=== PATIENT | female | born 1960 | race Caucasian/White ===

== ENCOUNTER 2017-11-23 14:29 | Outpatient (CLI) | payer MEDICARE, MEDICAID ==
[~2017-11-23] VITALS: Ht 157.5 cm; Wt 54.4 kg
[~2017-11-23 14:29] MED LIST: ATEN-169 PO; HYDR-565 PO; LOPE-144; LORA10TA7 PO; OMEP40CA37 PO
[2017-11-23 15:30] LABS: BASOPHILS % (AUTO) 0.3 % (0-1); EOSINOPHILS # (AUTO) 0.4 X10'3 (0-0.9); EOSINOPHILS % (AUTO) 3.4 % (0-6); LYMPHOCYTES # (AUTO) 0.8 X10'3 (1.1-4.8); LYMPHOCYTES % (AUTO) 7.3 % (21-51); MEAN CORPUSCULAR HEMOGLOBIN 30.6 PG (27.0-31.0); MEAN CORPUSCULAR VOLUME 90.2 FL (78-98); MEAN PLATELET VOLUME 6.6 FL (7.4-10.4); MONOCYTES # (AUTO) 0.7 X10'3 (0-0.9); MONOCYTES % (AUTO) 6.6 % (2-12); NEUTROPHILS # (AUTO) 9.3 X10'3 (1.8-7.7); NEUTROPHILS % (AUTO) 82.4 % (42-75); PRE OP PLATELET COUNT 321 X10'3 (140-440); RED BLOOD COUNT 3.14 X10'6 (4.20-5.60); RED CELL DISTRIBUTION WIDTH 17.4 % (11.5-14.5)
[2017-11-23] MEDS ORDERED: DIPH1TAB PO (15:33)
[2017-11-23 15:34] LABS: PRE OP HEMATOCRIT 28.3 % (35.0-45.0); PRE OP HEMOGLOBIN 9.6 g/dL (12.0-16.0)
[2017-11-23] MEDS ORDERED: METO50TA7 PO (15:34)
[2017-11-23] MEDS ORDERED: BISM262O PO (15:35)
[2017-11-23 15:36] LABS: CLARITY,URINE CLOUDY (Clear); COLOR,URINE YELLOW (Yellow); GLUCOSE, URINE NEGATIVE (Neg); KETONES,URINE NEGATIVE (Neg); LEUKOCYTE ESTERASE ,URINE LARGE (Neg); NITRITES, URINE POSITIVE (Neg); OCCULT BLOOD,URINE LARGE (Neg); PROTEIN,URINE 100 mg/dl (Neg); UA COLLECTION TYPE CLN CATCH MIDSTREAM; UROBILINOGEN,URINE 0.2 E.U/dL (0.2-1.0)
[2017-11-23 15:41] LABS: PRE OP INR 1.1 INR; PRE OP PROTIME 11.2 SECONDS (9.0-12.0)
[2017-11-23 15:44] LABS: MUCUS STRANDS MANY /LPF (Neg); SQUAMOUS EPITHELIAL CELL,UR FEW /LPF (FEW); WBC,URINE TNTC /HPF (0-4)
[2017-11-23 15:46] LABS: YEAST MODERATE /HPF (NEGATIVE)
[2017-11-23 15:47] LABS: AMORPHOUS URATES 1+; BACTERIA,URINE 3+ /HPF (Neg)
[2017-11-23 15:50] LABS: ALBUMIN 2.5 G/DL (3.4-5.0); ALBUMIN/GLOBULIN RATIO 0.5 (1.1-1.5); ALKALINE PHOSPHATASE 82 IU/L (46-116); BLOOD UREA NITROGEN 22 MG/DL (7-18); BUN/CREATININE RATIO 8.7 (6.6-38.0); CALCIUM 6.2 MG/DL (8.5-10.1); CHLORIDE 103 MMOL/L (99-107); CREATININE 2.53 MG/DL (0.40-0.90); PRE OP ALT 12 U/L (30-65); PRE OP ANION GAP 15 (8-16); PRE OP AST 16 U/L (10-37); PRE OP BILIRUB, TOTAL 0.5 MG/DL (0.0-1.0); PRE OP GLUCOSE 115 MG/DL (70-104); PRE OP POTASSIUM 3.4 MMOL/L (3.4-5.1); PRE OP SODIUM 139 MMOL/L (135-145); TOTAL CARBON DIOXIDE 20.9 MMOL/L (24-32); TOTAL PROTEIN 7.3 G/DL (6.4-8.2); eGFR 19 ML/MIN
[2017-11-24] MEDS ORDERED: ceFOXitin 2 GM ADDvantage bag 100 ML IV ONE (05:30)
[2017-11-24] MEDS ORDERED: DOCUMENT DATE & TIME OF BETA-BLOCKER PO ONE (05:30)
[2017-11-24] MEDS ORDERED: famotidine 20mg tablet PO ONE (05:30)
== END 2017-11-23 23:59 | disposition home or self-care (01) ==
LOC: PRE-OP 14:29 → EDSTATUS 11-24 15:30
PROVIDERS: ATTEND Surgery
DX: Z01.818 Encounter for other preprocedural examination (principal); K80.20 Calculus of gallbladder without cholecystitis without obstruction
CPT/HCPCS: 36415; 71046; 80053; 81001; 85025; 85610; 85730; 87077; 87088; 87186; 93005

== ENCOUNTER 2017-12-06 10:28 | Outpatient (CLI) | payer MEDICARE, MEDICAID ==
[~2017-12-06 10:28] MED LIST changes: -ATEN-169 PO; +BISM262O PO; +DIPH1TAB PO; -LOPE-144; +METO50TA7 PO
[2017-12-06 11:21] LABS: BASOPHILS % (AUTO) 0.2 % (0-1); EOSINOPHILS # (AUTO) 0.4 X10'3 (0-0.9); EOSINOPHILS % (AUTO) 2.4 % (0-6); LYMPHOCYTES # (AUTO) 0.7 X10'3 (1.1-4.8); LYMPHOCYTES % (AUTO) 4.2 % (21-51); MEAN CORPUSCULAR HEMOGLOBIN 30.3 PG (27.0-31.0); MEAN CORPUSCULAR HGB CONC 34.1 % (33.0-36.5); MEAN CORPUSCULAR VOLUME 88.8 FL (78-98); MEAN PLATELET VOLUME 6.9 FL (7.4-10.4); MONOCYTES # (AUTO) 0.7 X10'3 (0-0.9); MONOCYTES % (AUTO) 4.6 % (2-12); NEUTROPHILS % (AUTO) 88.6 % (42-75); PRE OP HEMATOCRIT 30.8 % (35.0-45.0); PRE OP PLATELET COUNT 320 X10'3 (140-440); RED BLOOD COUNT 3.47 X10'6 (4.20-5.60); RED CELL DISTRIBUTION WIDTH 16.8 % (11.5-14.5)
[2017-12-06 11:24] LABS: PRE OP HEMOGLOBIN 10.5 g/dL (12.0-16.0)
[2017-12-06 11:29] LABS: CLARITY,URINE CLOUDY (Clear); COLOR,URINE YELLOW (Yellow); GLUCOSE, URINE NEGATIVE (Neg); KETONES,URINE NEGATIVE (Neg); LEUKOCYTE ESTERASE ,URINE LARGE (Neg); NITRITES, URINE NEGATIVE (Neg); OCCULT BLOOD,URINE LARGE (Neg); PROTEIN,URINE 100 mg/dl (Neg); UROBILINOGEN,URINE 0.2 E.U/dL (0.2-1.0)
[2017-12-06 11:36] LABS: ALBUMIN 2.6 G/DL (3.4-5.0); ALBUMIN/GLOBULIN RATIO 0.5 (1.1-1.5); ALKALINE PHOSPHATASE 98 IU/L (46-116); BLOOD UREA NITROGEN 48 MG/DL (7-18); BUN/CREATININE RATIO 14.7 (6.6-38.0); CHLORIDE 102 MMOL/L (99-107); CREATININE 3.26 MG/DL (0.40-0.90); PRE OP ALT 12 U/L (30-65); PRE OP ANION GAP 19 (8-16); PRE OP AST 18 U/L (10-37); PRE OP BILIRUB, TOTAL 0.3 MG/DL (0.0-1.0); PRE OP GLUCOSE 87 MG/DL (70-104); PRE OP POTASSIUM 4.2 MMOL/L (3.4-5.1); PRE OP SODIUM 138 MMOL/L (135-145); TOTAL CARBON DIOXIDE 17.2 MMOL/L (24-32); TOTAL PROTEIN 8.2 G/DL (6.4-8.2); eGFR 15 ML/MIN
[2017-12-06 11:38] LABS: CALCIUM 5.4 MG/DL (8.5-10.1)
[2017-12-06 11:38] LABS: UA COLLECTION TYPE CLN CATCH MIDSTREAM
[2017-12-06 11:41] LABS: WBC,URINE TNTC /HPF (0-4)
[2017-12-06 11:42] LABS: BACTERIA,URINE 2+ /HPF (Neg); MUCUS STRANDS MANY /LPF (Neg); SQUAMOUS EPITHELIAL CELL,UR MODERATE /LPF (FEW)
[2017-12-06 11:43] LABS: WBC CLUMPS,URINE MODERATE /HPF (NEGATIVE)
[2017-12-06 11:44] LABS: RENAL CELLS, URINE FEW /HPF; TRANSITIONAL EPI CELLS,URINE FEW /HPF; YEAST MODERATE /HPF (NEGATIVE)
[2017-12-06 11:47] LABS: AMORPHOUS URATES 1+
== END 2017-12-06 23:59 | disposition home or self-care (01) ==
LOC: PRE-OP 10:28 → EDSTATUS 12-09 07:30
PROVIDERS: ATTEND Surgery
DX: K80.80 Other cholelithiasis without obstruction (principal); D58.2 Other hemoglobinopathies; I10 Essential (primary) hypertension; R82.99 Other abnormal findings in urine; Z87.891 Personal history of nicotine dependence
CPT/HCPCS: 36415; 80053; 81001; 85025; 87088

== ENCOUNTER → 2018-04-22 | Outpatient (CLI) | payer MEDICARE, MEDICAID ==
[~2018-04-22] MED LIST changes: +HYDR-4353 PO; -HYDR-565 PO; +diatrozoate meglu/diatrozoate sod (37% iodine) 120ML oral solution ONE
== END | disposition home or self-care (01) ==
LOC: RAD 09:35
PROVIDERS: ATTEND Surgery
DX: K57.30 Diverticulosis of large intestine without perforation or abscess without bleeding (principal); I10 Essential (primary) hypertension; Z79.899 Other long term (current) drug therapy; Z87.891 Personal history of nicotine dependence
CPT/HCPCS: 74270; Q9963

== ENCOUNTER 2019-05-22 17:41 | Observation (INO) | payer MEDICARE, MEDICAID ==
[~2019-05-22] VITALS: Ht 157.5 cm; Wt 42.0 kg
[~2019-05-22 17:41] MED LIST changes: +ALBU18HF2 IH; +ASPI81TA52 PO; -BISM262O PO; +CARV6.253 PO; +CIPR250T4 PO; -DIPH1TAB PO; +FLUC200T8 PO; +HYDR-3972 PO; -HYDR-4353 PO; +LACT1CAP26 PO; -LORA10TA7 PO; -METO50TA7 PO; -OMEP40CA37 PO; +VANC5VIA PO; -diatrozoate meglu/diatrozoate sod (37% iodine) 120ML oral solution ONE
[2019-05-22] MEDS ORDERED: fluconazole/NS 400mg/200ml bag 200 ML IV ONE (21:00)
[2019-05-22] MEDS ORDERED: ciprofloxacin lact 400MG/200ML 200 ML IV ONE (21:00)
[2019-05-22] MEDS ORDERED: vancomycin 250MG/10ML UD oral solution 10ML BOTTLE PO ONE (21:00)
[2019-05-22] MEDS ORDERED: normal saline 1000ml 1,000 ML IV ONE (21:05)
[2019-05-22] MEDS ORDERED: magnesium hydroxide 30ml (MOM) UD suspension PO PRN (21:10)
[2019-05-22] MEDS ORDERED: acetaminophen 325mg tablet PO PRN (21:10)
[2019-05-22] MEDS ORDERED: HYDROcodone/acetaminophen 5mg/325mg tablet PO PRN (21:10)
[2019-05-22] MEDS ORDERED: morphine 2 MG/ML inj. syringe IV PRN ×2 (21:10)
[2019-05-22] MEDS ORDERED: ondansetron/PF 4mg/2ml inj IV PRN (21:10)
[2019-05-22] MEDS ORDERED: mag hydrox/Alum hydrox/simeth 30ml oral suspension PO PRN (21:10)
[2019-05-22 21:25] VITALS: BP 130/70
[2019-05-22] MEDS ORDERED: normal saline 1000ml 1,000 ML IV SCH (22:35)
[2019-05-23] VITALS: BP 130/70
--- NOTE | 2019-05-23 01:53 | NUR ---
2124: Received patient report from ED RNSusy. Patient arrived to unit at 2204 via BENNY farrell transported. Resource nurse greeted and transferred patient to bed.I came in shortly after. Patients wound vac disconnected and ours was placed with miimal drainage. Patients IV was infiltrated, multiple RNs attempted to put in another. ICU nurse came up and put in a 22 in the right basilic at 2200. Fluids started and abx hung shortly after. Patient is resting comfortably. Will continue to access. Addendum: 05/23/19 at 0159 by Heath Lentz RN Times IV was started was around 0015 not 2200.This was due to the fact that IV was infiltrated when patient arrived and it took awhile for an RN to be able to place one
[2019-05-23] MEDS: HYDROcodone/acetaminophen 10/325mg tab PO PRN ×2 (03:18→09:11)
[2019-05-23 05:11] LABS: BASOPHILS # (AUTO) 0.1 X10'3 (0-0.2); BASOPHILS % (AUTO) 1.2 % (0-1); EOSINOPHILS # (AUTO) 0.3 X10'3 (0-0.9); EOSINOPHILS % (AUTO) 3.6 % (0-6); HEMATOCRIT 24.6 % (35.0-45.0); HEMOGLOBIN 8.3 g/dl (12.0-16.0); LYMPHOCYTES # (AUTO) 0.7 X10'3 (1.1-4.8); LYMPHOCYTES % (AUTO) 8.4 % (21-51); MEAN CORPUSCULAR HEMOGLOBIN 31.7 PG (27.0-31.0); MEAN CORPUSCULAR HGB CONC 33.9 g/dL (33.0-36.5); MEAN CORPUSCULAR VOLUME 93.5 FL (78-98); MEAN PLATELET VOLUME 6.7 FL (7.4-10.4); MONOCYTES # (AUTO) 0.6 X10'3 (0-0.9); MONOCYTES % (AUTO) 7.5 % (2-12); NEUTROPHILS # (AUTO) 6.6 X10'3 (1.8-7.7); NEUTROPHILS % (AUTO) 79.3 % (42-75); PLATELET COUNT 350 X10'3 (140-440); RED BLOOD COUNT 2.63 X10'6 (4.20-5.60); RED CELL DISTRIBUTION WIDTH 17.3 % (11.5-14.5); WHITE BLOOD COUNT 8.3 X10'3 (4.5-11.0)
[2019-05-23 05:37] LABS: ALBUMIN 1.6 G/DL (3.4-5.0); ANION GAP 12 (8-16); BLOOD UREA NITROGEN 25 MG/DL (7-18); BUN/CREATININE RATIO 12.4 (6.6-38.0); CALCIUM 7.8 MG/DL (8.5-10.1); CHLORIDE 104 MMOL/L (99-107); CREATININE 2.02 MG/DL (0.40-0.90); GLUCOSE 92 MG/DL (70-104); POTASSIUM 4.2 MMOL/L (3.5-5.1); SODIUM 135 MMOL/L (135-145); TOTAL CARBON DIOXIDE 19.3 MMOL/L (24-32); eGFR 25 ML/MIN
--- NOTE | 2019-05-23 06:37 | NUR ---
Problems reprioritized. Patient report given, questions answered & plan of care reviewed with BENNY Sommer.
[2019-05-23 07:00] VITALS: BP 117/64
--- NOTE | 2019-05-23 11:56 | NUR ---
Initial: Pt admit with wound VAC malfunction. Previously admitted and seen by RD multiple times. Pt was provided with written/verbal protein education with verbal anti-diarrhea education and written alternative menu to provide additional food options and optimize PO intake as well as RD contact information 05/09, no further education warranted at this time. Pt currently on a heart healthy diet documented with average 75% PO intake first meal. LBM 05/23. Will continue to follow. Recommendations: 1) Continue heart healthy diet; consider diet liberalization to regular if PO intake declines 2) Monitor need for ONS/additional protein 3) Wt per rx Addendum: 05/23/19 at [address] Amended: Links added.
[2019-05-23 11:58] VITALS: BP 145/68
[2019-05-23] MEDS: mineral oil/petrolatum, white cream 113gm jar TP SCH (12:00)
[2019-05-23] MEDS: nicotine 21mg patch - 24 hr TD SCH (12:00)
--- NOTE | 2019-05-23 14:53 | NUR ---
MD Martin aware med. req. needs to be addressed. Medications reviewed with pt.
[2019-05-23] MEDS ORDERED: ASPI-1265 PO (17:36)
[2019-05-23] MEDS ORDERED: CARV-49 PO (17:37)
[2019-05-23] MEDS ORDERED: FLUC100T PO (17:54)
[2019-05-23] MEDS ORDERED: VANC1VIA21 PO (17:59)
[2019-05-23] MEDS ORDERED: LACT1CAP65 PO (18:01)
[2019-05-23] MEDS ORDERED: CIPR250T4 PO (18:05)
[2019-05-23] MEDS ORDERED: VANC125C11 PO (18:21)
--- NOTE | 2019-05-23 18:21 | NUR ---
Problems reprioritized. Patient report given, questions answered & plan of care reviewed with Deann ZAPATA.
--- NOTE | 2019-05-23 18:58 | NUR ---
Patient in room [facility]. I have received report from Ros ZAPATA and had the opportunity to ask questions and assume patient care.patient was on bedside comode eating dinner call light in reach will continue to monitor
[2019-05-23 19:00] VITALS: BP 148/79
[2019-05-23] MEDS ORDERED: albuterol 2.5 MG/3 ML nebule NEB PRN (20:45)
--- NOTE | 2019-05-23 21:11 | NUR ---
Patient in room [facility]. I have received report from Ros ZAPATA and had the opportunity to ask questions and assume patient care.
[2019-05-24] VITALS: BP 111/61
[2019-05-24] MEDS: carvedilol 6.25mg tablet PO SCH ×2 (02:07→09:41)
[2019-05-24] MEDS: lactobacillus rhamnosus 10,000 MMU CELLS/CAPSULE PO SCH ×2 (02:07→09:44)
[2019-05-24] MEDS: vancomycin 125mg/5ml ORAL solution 5ml UD bottle PO SCH ×3 (02:07→09:40)
[2019-05-24] MEDS: mineral oil/petrolatum, white cream 113gm jar TP SCH ×3 (02:10→13:35)
[2019-05-24] MEDS: HYDROcodone/acetaminophen 10/325mg tab PO PRN ×3 (02:20→13:36)
[2019-05-24 05:46] LABS: BASOPHILS # (AUTO) 0.1 X10'3 (0-0.2); EOSINOPHILS # (AUTO) 0.2 X10'3 (0-0.9); EOSINOPHILS % (AUTO) 3.2 % (0-6); HEMOGLOBIN 7.5 g/dl (12.0-16.0); LYMPHOCYTES # (AUTO) 0.7 X10'3 (1.1-4.8); LYMPHOCYTES % (AUTO) 8.6 % (21-51); MEAN CORPUSCULAR HEMOGLOBIN 31.8 PG (27.0-31.0); MEAN CORPUSCULAR HGB CONC 34.3 g/dL (33.0-36.5); MEAN CORPUSCULAR VOLUME 92.7 FL (78-98); MEAN PLATELET VOLUME 6.7 FL (7.4-10.4); MONOCYTES # (AUTO) 0.5 X10'3 (0-0.9); MONOCYTES % (AUTO) 6.4 % (2-12); NEUTROPHILS # (AUTO) 6.2 X10'3 (1.8-7.7); NEUTROPHILS % (AUTO) 80.8 % (42-75); PLATELET COUNT 346 X10'3 (140-440); RED BLOOD COUNT 2.37 X10'6 (4.20-5.60); RED CELL DISTRIBUTION WIDTH 16.9 % (11.5-14.5); WHITE BLOOD COUNT 7.6 X10'3 (4.5-11.0)
[2019-05-24 05:47] LABS: ALBUMIN 1.6 G/DL (3.4-5.0); ANION GAP 10 (8-16); BLOOD UREA NITROGEN 26 MG/DL (7-18); BUN/CREATININE RATIO 12.4 (6.6-38.0); CALCIUM 7.8 MG/DL (8.5-10.1); CHLORIDE 104 MMOL/L (99-107); CREATININE 2.09 MG/DL (0.40-0.90); GLUCOSE 101 MG/DL (70-104); POTASSIUM 4.2 MMOL/L (3.5-5.1); SODIUM 135 MMOL/L (135-145); TOTAL CARBON DIOXIDE 21.2 MMOL/L (24-32); eGFR 24 ML/MIN
--- NOTE | 2019-05-24 06:29 | NUR ---
Problems reprioritized. Patient report given, questions answered & plan of care reviewed with Ros ZAPATA.
[2019-05-24 06:30] VITALS: BP 100/58
--- NOTE | 2019-05-24 06:33 | NUR ---
Problems reprioritized. Patient report given, questions answered & plan of care reviewed with Ros ZAPATA.
[2019-05-24] MEDS ORDERED: aspirin 81mg tab.chew PO SCH (08:00)
[2019-05-24] MEDS: nicotine 21mg patch - 24 hr TD SCH ×2 (08:00→09:50)
[2019-05-24] MEDS ORDERED: fluconazole 100mg tablet PO SCH (08:00)
[2019-05-24 11:00] VITALS: BP 117/66
[2019-05-24] MEDS ORDERED: ciprofloxacin 250mg tablet PO SCH (11:00)
--- NOTE | 2019-05-24 13:47 | NUR ---
Report called in to Santos DÍAZ charge at [facility]. Pt. being prepared for transfer.
--- NOTE | 2019-05-24 14:22 | NUR ---
PRESSURE ULCER EDUCATION: DEFINITION: A pressure ulcer is an area of skin that breaks down when you stay in one position too long. The constant pressure against the skin reduces the blood flow to that area and the affected tissue dies. CAUSES: "Being bedridden or in a wheelchair "Fragile skin "Having a chronic condition, such as diabetes or vascular disease "Inability to move certain parts of your body without assistance "Older age "Incontinence of urine or stool SYMPTOMS: "A reddened area that DOES NOT turn white when pressed on - this can be the beginning of a pressure ulcer "A blister, deep sore or a crater - these can be advanced pressure ulcers FIRST AID: "Relieve the pressure on this area "Keep the area clean and dry "Call your primary doctor if you see any of the above symptoms "DO NOT massage the area "DO NOT use a donut shaped or ring shaped pillow- these actually interfere with the blood flow and cause complications PREVENTION: "Check for pressure ulcers everyday "Change position at least every two hours to relieve pressure "Use items that help relieve pressure- pillows, sheepskin, foam padding, and powders. "Keep skin clean and dry "Eat healthy well balanced meals "Exercise daily IF YOU SEE ANY OF THESE SYMPTOMS WHILE IN THE HOSPITAL - TELL YOUR NURSE IMMEDIATELY. IF YOU SEE ANY OF THESE SYMPTOMS WHILE AT HOME OR HAVE ANY QUESTIONS OR CONCERNS ABOUT PRESSURE ULCERS - CALL YOUR PRIMARY DOCTOR IMMEDIATELY. Addendum: 05/24/19 at 1423 by Germain Quinteros RN Amended: Links added.
== END 2019-05-24 14:21 ==
LOC: ER 17:41 → ED HOLD 21:35 → SUR 3N 22:05
PROVIDERS: ADMIT Internal Medicine; ATTEND Family Medicine
DX: T85.618A Breakdown (mechanical) of other specified internal prosthetic devices, implants and grafts, initial encounter (principal); I12.9 Hypertensive chronic kidney disease with stage 1 through stage 4 chronic kidney disease, or unspecified chronic kidney disease; N18.3 Chronic kidney disease, stage 3 (moderate); D63.8 Anemia in other chronic diseases classified elsewhere; I73.9 Peripheral vascular disease, unspecified; J44.9 Chronic obstructive pulmonary disease, unspecified; K21.9 Gastro-esophageal reflux disease without esophagitis; Z85.41 Personal history of malignant neoplasm of cervix uteri; Z85.118 Personal history of other malignant neoplasm of bronchus and lung; Z87.891 Personal history of nicotine dependence; Z87.11 Personal history of peptic ulcer disease; Z90.710 Acquired absence of both cervix and uterus; Z79.82 Long term (current) use of aspirin; Z79.899 Other long term (current) drug therapy; Y83.8 Other surgical procedures as the cause of abnormal reaction of the patient, or of later complication, without mention of misadventure at the time of the procedure; Y92.89 Other specified places as the place of occurrence of the external cause
CPT/HCPCS: 36415; 80048; 85025; 87081; 96365; 96367; 97112; 97116; 97530; 99284; G0378; J0744; J1450; J7030

== ENCOUNTER 2019-07-16 17:48 | Inpatient (IN) | payer MEDICARE, MEDICAID ==
[~2019-07-16] VITALS: Ht 165.1 cm; Wt 42.0 kg
[~2019-07-16 17:48] MED LIST changes: +ASPI-1265 PO; -ASPI81TA52 PO; +CARV-49 PO; -CARV6.253 PO; +FLUC100T PO; -FLUC200T8 PO; -LACT1CAP26 PO; +LACT1CAP65 PO; +VANC125C11 PO; -VANC5VIA PO
--- NOTE | 2019-07-16 19:02 | NUR ---
Patient resting comfortably on gurney, waiting for MD.
[2019-07-16] MEDS ORDERED: normal saline 1000ML IV soln IVB ONE (20:20)
[2019-07-16] MEDS ORDERED: ipratropium/albuterol 3ml nebule NEB ONE (20:20)
[2019-07-16] MEDS ORDERED: fentaNYL/PF 50MCG/1 ML 2ML syringe IV ONE (20:25)
[2019-07-16 20:32] LABS: BASOPHILS # (AUTO) 0.1 X10'3 (0-0.2); BASOPHILS % (AUTO) 0.7 % (0-1); EOSINOPHILS # (AUTO) 0.5 X10'3 (0-0.9); EOSINOPHILS % (AUTO) 5.5 % (0-6); HEMATOCRIT 33.5 % (35.0-45.0); HEMOGLOBIN 11.3 g/dl (12.0-16.0); LYMPHOCYTES # (AUTO) 1.1 X10'3 (1.1-4.8); LYMPHOCYTES % (AUTO) 12.7 % (21-51); MEAN CORPUSCULAR HEMOGLOBIN 28.1 PG (27.0-31.0); MEAN CORPUSCULAR HGB CONC 33.6 g/dL (33.0-36.5); MEAN CORPUSCULAR VOLUME 83.6 FL (78-98); MEAN PLATELET VOLUME 7.7 FL (7.4-10.4); MONOCYTES # (AUTO) 0.5 X10'3 (0-0.9); MONOCYTES % (AUTO) 5.7 % (2-12); NEUTROPHILS # (AUTO) 6.3 X10'3 (1.8-7.7); NEUTROPHILS % (AUTO) 75.4 % (42-75); PLATELET COUNT 232 X10'3 (140-440); RED BLOOD COUNT 4.01 X10'6 (4.20-5.60); RED CELL DISTRIBUTION WIDTH 16.7 % (11.5-14.5); WHITE BLOOD COUNT 8.3 X10'3 (4.5-11.0)
[2019-07-16 20:51] LABS: ALANINE AMINOTRANSFERASE 44 U/L (12-78); ALBUMIN 2.3 G/DL (3.4-5.0); ALBUMIN/GLOBULIN RATIO 0.4 (1.1-1.5); ALKALINE PHOSPHATASE 211 IU/L (46-116); ANION GAP 12 (8-16); ASPARTATE AMINO TRANSFERASE 34 U/L (10-37); BILIRUBIN,TOTAL 0.3 MG/DL (0.1-1.0); BLOOD UREA NITROGEN 45 MG/DL (7-18); BUN/CREATININE RATIO 25.4 (6.6-38.0); CALCIUM 8.9 MG/DL (8.5-10.1); CHLORIDE 103 MMOL/L (99-107); CREATININE 1.77 MG/DL (0.40-0.90); GLUCOSE 120 MG/DL (70-104); SODIUM 137 MMOL/L (135-145); TOTAL CARBON DIOXIDE 21.7 MMOL/L (24-32); TOTAL PROTEIN 8.5 G/DL (6.4-8.2); eGFR 29 ML/MIN
[2019-07-16 20:54] LABS: PARTIAL THROMBOPLASTIN TIME 24 SECONDS (22-32)
[2019-07-16 20:55] LABS: POTASSIUM 2.9 MMOL/L (3.5-5.1)
[2019-07-16] MEDS ORDERED: potassium Cl 10 mEq/100mL bag IV ONE (21:05)
[2019-07-16] MEDS ORDERED: potassium Cl 20 mEq SR tablet PO ONE (21:05)
--- NOTE | 2019-07-16 21:34 | NUR ---
Patient getting IV potassium, pending hospital admit.
[2019-07-16] MEDS ORDERED: potassium Cl 20 mEq SR tablet PO PRN ×2 (21:45)
[2019-07-16] MEDS ORDERED: mag hydrox/Alum hydrox/simeth 30ml oral suspension PO PRN (21:45)
[2019-07-16] MEDS ORDERED: magnesium 2GM in 50ml NS 50 ML IV ONE (21:45)
[2019-07-16] MEDS ORDERED: potassium CL 10mEq/100ml bag 100 ML IV PRN ×2 (21:45)
[2019-07-16] MEDS ORDERED: acetaminophen 325mg tablet PO PRN ×2 (21:45)
[2019-07-16] MEDS ORDERED: magnesium 4gm in 100ml NS 100 ML IV PRN (21:45)
[2019-07-16] MEDS ORDERED: magnesium 2GM in 50ml NS 50 ML IV PRN (21:45)
[2019-07-16] MEDS ORDERED: magnesium hydroxide 30ml (MOM) UD suspension PO PRN (21:45)
[2019-07-16] MEDS ORDERED: morphine 2 MG/ML inj. syringe IV PRN ×2 (21:45)
[2019-07-16] MEDS ORDERED: HYDROcodone/acetaminophen 5mg/325mg tablet PO PRN (21:45)
[2019-07-16] MEDS ORDERED: ondansetron/PF 4mg/2ml inj IV PRN (21:45)
[2019-07-16] MEDS ORDERED: LORA10TA7 PO (21:53)
[2019-07-16] MEDS ORDERED: FLUC100T PO (21:53)
[2019-07-16] MEDS ORDERED: VANC125C11 PO (21:53)
[2019-07-16] MEDS ORDERED: CLOP75TA35 PO (21:53)
[2019-07-16] MEDS ORDERED: OMEP40CA13 PO (21:53)
[2019-07-16] MEDS ORDERED: DOXY100C2 PO (21:53)
[2019-07-16] MEDS ORDERED: CIPR-230 PO (21:53)
[2019-07-16] MEDS ORDERED: LISI-600 PO (21:53)
[2019-07-16] MEDS: normal saline 1000ml 1,000 ML IV SCH ×2 (21:57→22:01)
[2019-07-16] MEDS ORDERED: albuterol 2.5 MG/3 ML nebule NEB PRN (22:45)
[2019-07-16] MEDS ORDERED: HYDROcodone/acetaminophen 10/325mg tab PO PRN (22:45)
--- NOTE | 2019-07-16 22:51 | NUR ---
Patient in room . I have received report from BENNY Willis and had the opportunity to ask questions and assume patient care.
[2019-07-16 23:00] VITALS: BP 131/65
--- NOTE | 2019-07-16 23:19 | NUR ---
Sent stool sample to lab.
--- NOTE | 2019-07-17 01:05 | NUR ---
SKIN ASSESSMENT DONE WITH BENNY KOO AND PICTURES OF WOUNDS TAKEN
[2019-07-17 02:28] LABS: PHOSPHORUS 3.8 MG/DL (2.3-4.5)
[2019-07-17] MEDS: vancomycin 125mg/5ml ORAL solution 5ml UD bottle PO SCH ×4 (02:41→19:47)
--- NOTE | 2019-07-17 03:34 | NUR ---
patient placed f/c and rectal tube due to non-stop loose bowel movement and has open sacral and groin wounds,received orders from Dr. Amin
[2019-07-17 05:56] LABS: ALBUMIN 2.1 G/DL (3.4-5.0); ANION GAP 11 (8-16); BLOOD UREA NITROGEN 38 MG/DL (7-18); BUN/CREATININE RATIO 23.6 (6.6-38.0); CALCIUM 8.4 MG/DL (8.5-10.1); CHLORIDE 107 MMOL/L (99-107); CREATININE 1.61 MG/DL (0.40-0.90); GLUCOSE 107 MG/DL (70-104); MAGNESIUM 1.8 MG/DL (1.5-2.4); PHOSPHORUS 3.4 MG/DL (2.3-4.5); POTASSIUM 3.6 MMOL/L (3.5-5.1); SODIUM 137 MMOL/L (135-145); TOTAL CARBON DIOXIDE 18.7 MMOL/L (24-32); eGFR 33 ML/MIN
[2019-07-17] MEDS: normal saline 1000ml 1,000 ML IV SCH ×2 (06:18→15:49)
--- NOTE | 2019-07-17 06:20 | NUR ---
Problems reprioritized. Patient report given, questions answered & plan of care reviewed with BENNY GARCIA. Addendum: 07/17/19 at 0620 by Sharon Knapp RN Amended: Links added.
[2019-07-17 07:00] VITALS: BP 169/81
[2019-07-17] MEDS: pantoprazole 40mg Tablet.DR PO SCH (07:43)
[2019-07-17] MEDS: HYDROcodone/acetaminophen 10/325mg tab PO PRN ×3 (07:43→19:47)
[2019-07-17] MEDS: DOXYCYCLINE 100MG CAPSULE PO SCH ×2 (07:43→19:48)
[2019-07-17] MEDS: ciprofloxacin 250mg tablet PO SCH (07:43)
[2019-07-17] MEDS: fluconazole 100mg tablet PO SCH (07:43)
[2019-07-17] MEDS: loratadine 10mg tablet PO SCH (07:43)
[2019-07-17] MEDS: lisinopril 5mg tablet PO SCH (07:44)
[2019-07-17] MEDS: carvedilol 6.25mg tablet PO SCH ×2 (07:44→19:48)
[2019-07-17] MEDS: clopidogrel 75mg tablet PO SCH (07:44)
[2019-07-17] MEDS: K and/or MAG REPLACEMENT MC SCH ×2 (08:00→20:00)
--- NOTE | 2019-07-17 08:00 | NUR ---
Patient in room [facility]. I have received report from Roseline Ryder and had the opportunity to ask questions and assume patient care.
[2019-07-17 11:00] VITALS: BP 164/85
[2019-07-17] MEDS ORDERED: chloestyramine/aspartame 4gm packet PO PRN (12:35)
--- NOTE | 2019-07-17 16:09 | NUR ---
PRESSURE ULCER EDUCATION: DEFINITION: A pressure ulcer is an area of skin that breaks down when you stay in one position too long. The constant pressure against the skin reduces the blood flow to that area and the affected tissue dies. CAUSES: "Being bedridden or in a wheelchair "Fragile skin "Having a chronic condition, such as diabetes or vascular disease "Inability to move certain parts of your body without assistance "Older age "Incontinence of urine or stool SYMPTOMS: "A reddened area that DOES NOT turn white when pressed on - this can be the beginning of a pressure ulcer "A blister, deep sore or a crater - these can be advanced pressure ulcers FIRST AID: "Relieve the pressure on this area "Keep the area clean and dry "Call your primary doctor if you see any of the above symptoms "DO NOT massage the area "DO NOT use a donut shaped or ring shaped pillow- these actually interfere with the blood flow and cause complications PREVENTION: "Check for pressure ulcers everyday "Change position at least every two hours to relieve pressure "Use items that help relieve pressure- pillows, sheepskin, foam padding, and powders. "Keep skin clean and dry "Eat healthy well balanced meals "Exercise daily IF YOU SEE ANY OF THESE SYMPTOMS WHILE IN THE HOSPITAL - TELL YOUR NURSE IMMEDIATELY. IF YOU SEE ANY OF THESE SYMPTOMS WHILE AT HOME OR HAVE ANY QUESTIONS OR CONCERNS ABOUT PRESSURE ULCERS - CALL YOUR PRIMARY DOCTOR IMMEDIATELY. Addendum: 07/17/19 at 1609 by Roya Yeager RN Amended: Links added.
--- NOTE | 2019-07-17 18:00 | NUR ---
Problems reprioritized. Patient report given, questions answered & plan of care reviewed with Britni Dukes RN.
--- NOTE | 2019-07-17 18:18 | NUR ---
Malnutrition consult: Pt admit w/ wound vac replacement problems; unable to replace outpatient so admitted per MD note. Recent admit in April for ileopopliteal bypass given hx PVD requiring wound vac. Pt seen by RD and reports PO typically good at home but has declined w/ recent multiple surgeries past 6 months in addition to persistent diarrhea since 2014 which causes burning and irritation and "cannot be controlled." Pt does have c.diff hx on c.diff isolation but also reports "2 feet bowel removed" in past. Pt unable to provide specifics but does think she had been on IV nutrition at some point in her past. Again, specifics unknown. Pt does have hx lung and cervical CA receiving radiation though Gastrografin study showed normal colon per MD note 2017. Does take probiotic at home per pt. RD d/w RN regarding addition of probiotic per MD given diarrhea, c.diff, and antibiotics. Pt has imodium PRN ordered but would benefit from routine imodium as well per MD approval given diarrhea hx; ROBERTO d/w RN. Pt current BMI not accurate given correct height 65 in. making BMI 16.9. Pt has visible severe muscle/fat wasting w/ cachexia in addition to R/L groin surgical wounds, and fluctuating PO hx and meets severe malnutrition criteria at this time. MD notified. Persistent diarrhea likely to effect PO as well. RD provided pt w/ verbal malnutrition diet ed since pt reports does not like ONS/ensures so not appropriate for written ed at this time. Pt is agreeable to banana/applesauce BIDLD and cottage cheese w/ fruit at breakfast. Dietary notified. Pt is having taco eagle brought in by daughter in addition to other foods likely to effect PO meals and diarrhea as well. Will continue to monitor for PO diet tolerance and additional protein/kcal needs this admit. May require low-residue diet if PO intolerance continues this admit given hx. Rec: 1. advance diet to low-residue per MD approval 2. applesauce/banana BIDLD, cottage cheese and fruit w/ breakfasts 3. probiotic and imodium routinely per MD approval given persistent diarrhea 4. weekly wts 5. MVI for wound healing needs per MD approval; encourage PO Addendum: 07/17/19 at [address] Amended: Links added.
--- NOTE | 2019-07-17 18:37 | NUR ---
Patient in room [facility]. I have received report from BENNY Livingston and had the opportunity to ask questions and assume patient care. Addendum: 07/17/19 at 1837 by Sharon Knapp RN Amended: Links added.
[2019-07-17] MEDS: loperamide 2mg capsule PO PRN (19:48)
[2019-07-17] MEDS: lactobacillus rhamnosus 10,000 MMU CELLS/CAPSULE PO SCH (19:48)
[2019-07-17 20:00] VITALS: BP 166/84
[2019-07-18] VITALS: BP 151/81
[2019-07-18] MEDS: vancomycin 125mg/5ml ORAL solution 5ml UD bottle PO SCH ×4 (01:51→20:00)
[2019-07-18] MEDS: normal saline 1000ml 1,000 ML IV SCH ×2 (01:59→12:06)
[2019-07-18 05:58] LABS: ALBUMIN 1.9 G/DL (3.4-5.0); ANION GAP 11 (8-16); BLOOD UREA NITROGEN 26 MG/DL (7-18); BUN/CREATININE RATIO 18.6 (6.6-38.0); CALCIUM 8.2 MG/DL (8.5-10.1); CHLORIDE 109 MMOL/L (99-107); GLUCOSE 112 MG/DL (70-104); MAGNESIUM 1.4 MG/DL (1.5-2.4); PHOSPHORUS 2.9 MG/DL (2.3-4.5); POTASSIUM 3.5 MMOL/L (3.5-5.1); SODIUM 140 MMOL/L (135-145); TOTAL CARBON DIOXIDE 20.2 MMOL/L (24-32); eGFR 38 ML/MIN
--- NOTE | 2019-07-18 06:06 | NUR ---
Problems reprioritized. Patient report given, questions answered & plan of care reviewed with BENNY West. Addendum: 07/18/19 at 0606 by Gloria Dyer RN Amended: Links added.
--- NOTE | 2019-07-18 06:50 | NUR ---
Patient in room [facility]. I have received report from Gloria ZAPATA and had the opportunity to ask questions and assume patient care.
[2019-07-18] MEDS: lactobacillus rhamnosus 10,000 MMU CELLS/CAPSULE PO SCH (07:14)
[2019-07-18] MEDS: lisinopril 5mg tablet PO SCH (07:14)
[2019-07-18] MEDS: carvedilol 6.25mg tablet PO SCH ×2 (07:14→19:59)
[2019-07-18] MEDS: clopidogrel 75mg tablet PO SCH (07:14)
[2019-07-18] MEDS: ciprofloxacin 250mg tablet PO SCH (07:14)
[2019-07-18] MEDS: loratadine 10mg tablet PO SCH (07:15)
[2019-07-18] MEDS: HYDROcodone/acetaminophen 10/325mg tab PO PRN ×2 (07:15→17:19)
[2019-07-18] MEDS: pantoprazole 40mg Tablet.DR PO SCH (07:15)
[2019-07-18] MEDS: DOXYCYCLINE 100MG CAPSULE PO SCH ×2 (07:16→19:59)
[2019-07-18] MEDS: fluconazole 100mg tablet PO SCH (07:19)
[2019-07-18] MEDS: magnesium Cl slow-release 64mg tablet PO PRN ×2 (07:24→22:30)
[2019-07-18] MEDS: K and/or MAG REPLACEMENT MC SCH ×2 (08:00→20:00)
[2019-07-18 09:51] LABS: C DIFF ANTIGEN NEGATIVE (NEGATIVE); C DIFF SPECIMEN=DIARRHEA? ACCEPTABLE; C DIFFICILE TOXINS A&B NEGATIVE (Neg)
[2019-07-18 10:56] LABS: BASOPHILS # (AUTO) 0.1 X10'3 (0-0.2); BASOPHILS % (AUTO) 0.5 % (0-1); EOSINOPHILS # (AUTO) 0.4 X10'3 (0-0.9); EOSINOPHILS % (AUTO) 2.1 % (0-6); HEMATOCRIT 32.4 % (35.0-45.0); HEMOGLOBIN 10.8 g/dl (12.0-16.0); LYMPHOCYTES # (AUTO) 0.8 X10'3 (1.1-4.8); LYMPHOCYTES % (AUTO) 4.5 % (21-51); MEAN CORPUSCULAR HEMOGLOBIN 27.9 PG (27.0-31.0); MEAN CORPUSCULAR HGB CONC 33.2 g/dL (33.0-36.5); MEAN CORPUSCULAR VOLUME 84.3 FL (78-98); MEAN PLATELET VOLUME 7.5 FL (7.4-10.4); MONOCYTES # (AUTO) 0.8 X10'3 (0-0.9); MONOCYTES % (AUTO) 4.9 % (2-12); NEUTROPHILS # (AUTO) 14.8 X10'3 (1.8-7.7); PLATELET COUNT 246 X10'3 (140-440); RED BLOOD COUNT 3.85 X10'6 (4.20-5.60); RED CELL DISTRIBUTION WIDTH 16.4 % (11.5-14.5); WHITE BLOOD COUNT 16.8 X10'3 (4.5-11.0)
[2019-07-18 12:25] VITALS: BP 145/70
[2019-07-18] MEDS: loperamide 2mg capsule PO PRN (17:18)
--- NOTE | 2019-07-18 18:59 | NUR ---
Problems reprioritized. Patient report given, questions answered & plan of care reviewed with Lavelle ZAPATA.
[2019-07-18 19:10] VITALS: BP 110/63
[2019-07-18] MEDS ORDERED: diphenoxylate/atropine tablet (Lomotil) PO PRN (19:50)
[2019-07-19] MEDS: HYDROcodone/acetaminophen 10/325mg tab PO PRN ×4 (03:13→23:43)
--- NOTE | 2019-07-19 06:00 | NUR ---
Patient in room [facility]. I have received report from BENNY Valderrama and had the opportunity to ask questions and assume patient care.
[2019-07-19 06:20] LABS: BASOPHILS # (AUTO) 0.1 X10'3 (0-0.2); BASOPHILS % (AUTO) 0.4 % (0-1); EOSINOPHILS # (AUTO) 0.2 X10'3 (0-0.9); EOSINOPHILS % (AUTO) 1.7 % (0-6); HEMOGLOBIN 9.2 g/dl (12.0-16.0); LYMPHOCYTES # (AUTO) 0.7 X10'3 (1.1-4.8); LYMPHOCYTES % (AUTO) 4.9 % (21-51); MEAN CORPUSCULAR HEMOGLOBIN 27.7 PG (27.0-31.0); MEAN CORPUSCULAR HGB CONC 32.8 g/dL (33.0-36.5); MEAN CORPUSCULAR VOLUME 84.4 FL (78-98); MONOCYTES # (AUTO) 0.7 X10'3 (0-0.9); MONOCYTES % (AUTO) 5.1 % (2-12); NEUTROPHILS # (AUTO) 12.9 X10'3 (1.8-7.7); NEUTROPHILS % (AUTO) 87.9 % (42-75); PLATELET COUNT 216 X10'3 (140-440); RED BLOOD COUNT 3.32 X10'6 (4.20-5.60); RED CELL DISTRIBUTION WIDTH 16.3 % (11.5-14.5); WHITE BLOOD COUNT 14.7 X10'3 (4.5-11.0)
[2019-07-19 06:31] LABS: ALBUMIN 1.6 G/DL (3.4-5.0); ANION GAP 8 (8-16); BLOOD UREA NITROGEN 20 MG/DL (7-18); BUN/CREATININE RATIO 13.5 (6.6-38.0); CALCIUM 8.5 MG/DL (8.5-10.1); CHLORIDE 109 MMOL/L (99-107); CREATININE 1.48 MG/DL (0.40-0.90); GLUCOSE 85 MG/DL (70-104); MAGNESIUM 1.1 MG/DL (1.5-2.4); POTASSIUM 3.7 MMOL/L (3.5-5.1); SODIUM 136 MMOL/L (135-145); TOTAL CARBON DIOXIDE 18.9 MMOL/L (24-32); eGFR 36 ML/MIN
--- NOTE | 2019-07-19 07:08 | NUR ---
Problems reprioritized. Patient report given, questions answered & plan of care reviewed with RADHA. Addendum: 07/19/19 at 0708 by Michoacano Persaud RN Amended: Links added.
[2019-07-19 08:00] VITALS: BP 114/46
[2019-07-19] MEDS: K and/or MAG REPLACEMENT MC SCH ×2 (08:00→20:00)
[2019-07-19] MEDS: normal saline 1000ml 1,000 ML IV SCH (09:42)
[2019-07-19] MEDS: DOXYCYCLINE 100MG CAPSULE PO SCH ×2 (10:10→20:04)
[2019-07-19] MEDS: loratadine 10mg tablet PO SCH (10:11)
[2019-07-19] MEDS: clopidogrel 75mg tablet PO SCH (10:11)
[2019-07-19] MEDS: carvedilol 6.25mg tablet PO SCH ×2 (10:11→20:04)
[2019-07-19] MEDS: fluconazole 100mg tablet PO SCH (10:11)
[2019-07-19] MEDS: pantoprazole 40mg Tablet.DR PO SCH (10:11)
[2019-07-19] MEDS: multivitamins, therapeutics tablet PO SCH (10:12)
[2019-07-19] MEDS: lisinopril 5mg tablet PO SCH (10:12)
[2019-07-19] MEDS ORDERED: chloestyramine/aspartame 4gm packet PO PRN (11:00)
[2019-07-19 12:00] VITALS: BP 113/54
--- NOTE | 2019-07-19 16:49 | NUR ---
WOUND VAC EDUCATION PROVIDED BY WOUND CARE 1. Patient instructed to call the Wound Center or their Home Health Agency immediately if: * They notice a change in the color or amount of the fluid in the canister. * Their wound looks more red than usual or has a foul smell. * The skin around their wound looks reddened or irritated. * The dressing feels loose or appears to be loose. * They experience any increase or changes in their pain. * The alarm will not turn off. 2. Patient instructed that they should not be disconnected from suction for more than 2 hours at a time. * If they are not able to get the suction back on, they need to remove the dressing and take all of the foam out of the wound. * Then moisten sterile gauze with normal saline and place on/in the wound. * Change the dressing once a day until arrangements have been made to replace the wound vac dressing. 3. Patient instructed to turn the wound vac machine OFF and call 911 or go to the ED immediately if their canister fills rapidly with blood. 4. If any of these occur while in the hospital tell a nurse immediately. Addendum: 07/19/19 at 1649 by Roya Yeager RN Amended: Links added.
[2019-07-19] MEDS: magnesium Cl slow-release 64mg tablet PO PRN (17:00)
[2019-07-19 18:00] VITALS: BP 114/55
--- NOTE | 2019-07-19 18:00 | NUR ---
Patient was rounded on frequently today, day too busy to chart individual interventions.
--- NOTE | 2019-07-19 18:30 | NUR ---
Problems reprioritized. Patient report given, questions answered & plan of care reviewed with BENNY Joe.
--- NOTE | 2019-07-19 19:00 | NUR ---
Patient in room [facility]. I have received report from BENNY Acharya and had the opportunity to ask questions and assume patient care. Addendum: 07/19/19 at 1904 by Heath Lentz RN BENNY Livingston
[2019-07-20] VITALS: BP 126/62
[2019-07-20 04:55] LABS: BASOPHILS # (AUTO) 0.1 X10'3 (0-0.2); BASOPHILS % (AUTO) 0.6 % (0-1); EOSINOPHILS # (AUTO) 0.2 X10'3 (0-0.9); EOSINOPHILS % (AUTO) 1.7 % (0-6); HEMATOCRIT 26.4 % (35.0-45.0); HEMOGLOBIN 8.8 g/dl (12.0-16.0); LYMPHOCYTES # (AUTO) 0.7 X10'3 (1.1-4.8); LYMPHOCYTES % (AUTO) 6.2 % (21-51); MEAN CORPUSCULAR HEMOGLOBIN 28.1 PG (27.0-31.0); MEAN CORPUSCULAR HGB CONC 33.3 g/dL (33.0-36.5); MEAN CORPUSCULAR VOLUME 84.5 FL (78-98); MEAN PLATELET VOLUME 7.8 FL (7.4-10.4); MONOCYTES # (AUTO) 0.6 X10'3 (0-0.9); MONOCYTES % (AUTO) 5.7 % (2-12); NEUTROPHILS # (AUTO) 9.7 X10'3 (1.8-7.7); NEUTROPHILS % (AUTO) 85.8 % (42-75); PLATELET COUNT 205 X10'3 (140-440); RED BLOOD COUNT 3.13 X10'6 (4.20-5.60); RED CELL DISTRIBUTION WIDTH 16.4 % (11.5-14.5); WHITE BLOOD COUNT 11.3 X10'3 (4.5-11.0)
--- NOTE | 2019-07-20 06:30 | NUR ---
Problems reprioritized. Patient report given, questions answered & plan of care reviewed with BENNY Parks.
[2019-07-20 06:40] LABS: ALBUMIN 1.6 G/DL (3.4-5.0); ANION GAP 11 (8-16); BLOOD UREA NITROGEN 21 MG/DL (7-18); BUN/CREATININE RATIO 13.9 (6.6-38.0); CALCIUM 8.8 MG/DL (8.5-10.1); CHLORIDE 105 MMOL/L (99-107); CREATININE 1.51 MG/DL (0.40-0.90); GLUCOSE 102 MG/DL (70-104); MAGNESIUM 1.2 MG/DL (1.5-2.4); PHOSPHORUS 3.6 MG/DL (2.3-4.5); POTASSIUM 3.5 MMOL/L (3.5-5.1); SODIUM 135 MMOL/L (135-145); TOTAL CARBON DIOXIDE 19.3 MMOL/L (24-32); eGFR 35 ML/MIN
[2019-07-20 07:00] VITALS: BP 131/65
[2019-07-20] MEDS: loratadine 10mg tablet PO SCH (07:27)
[2019-07-20] MEDS: clopidogrel 75mg tablet PO SCH (07:27)
[2019-07-20] MEDS: multivitamins, therapeutics tablet PO SCH (07:27)
[2019-07-20] MEDS: DOXYCYCLINE 100MG CAPSULE PO SCH (07:27)
[2019-07-20] MEDS: carvedilol 6.25mg tablet PO SCH (07:27)
[2019-07-20] MEDS: fluconazole 100mg tablet PO SCH (07:27)
[2019-07-20] MEDS: HYDROcodone/acetaminophen 10/325mg tab PO PRN (07:28)
[2019-07-20] MEDS: pantoprazole 40mg Tablet.DR PO SCH (07:28)
[2019-07-20] MEDS: lisinopril 5mg tablet PO SCH (07:28)
[2019-07-20] MEDS: K and/or MAG REPLACEMENT MC SCH (08:00)
[2019-07-20] MEDS ORDERED: potassium CL 10mEq/100ml bag 100 ML IV PRN (09:05)
[2019-07-20] MEDS ORDERED: magnesium 2GM in 50ml NS 50 ML IV PRN (09:05)
[2019-07-20] MEDS ORDERED: potassium Cl 20 mEq SR tablet PO PRN ×2 (09:05)
[2019-07-20] MEDS ORDERED: magnesium Cl slow-release 64mg tablet PO PRN (09:05)
[2019-07-20] MEDS ORDERED: magnesium 4gm in 100ml NS 100 ML IV PRN (09:05)
[2019-07-20] MEDS ORDERED: QUELT PO (09:45)
[2019-07-20 11:00] VITALS: BP 142/62
[2019-07-20] MEDS ORDERED: chloestyramine/aspartame 4gm packet PO SCH (11:00)
[2019-07-20] MEDS ORDERED: HYDR-4353 PO (12:56)
--- NOTE | 2019-07-20 13:00 | NUR ---
patient was rounded on hourly and frequently assessed for patient needs.
[2019-07-20] MEDS ORDERED: DOXY100C43 PO (13:25)
[2019-07-20] MEDS ORDERED: VANC125C11 PO (13:25)
[2019-07-20] MEDS ORDERED: FLUC200T PO (13:25)
[2019-07-20] MEDS ORDERED: CIPR-259 PO (13:25)
--- NOTE | 2019-07-20 13:30 | NUR ---
patient alert, oriented, and appropriate for discharge. patient discharged escorted by a member of the staff. Patient heavily educated on the importance of attending both the appointment at the wound clinic, and the appointment at [facility] both of which she made TODAY for monday 07/24 at 9:30 and Wednesday at 10:00 respectively. Patient left with personal woundvac at 75mmHg setting per Arminda. Patient left with all belongings and informed to immediately go to the pharmacy and and receive prescriptions. Borrego removed. Rectal tube removed. No IV in place. No tele in place. Woundcare photos taken and placed in chart.
--- NOTE | 2019-07-21 12:04 | NUR ---
Case Management DC follow up: spoke w/pt daughter/certified [employer] gatherer, Cristal Chambers. pt doing well. wound vac in place/functioning properly, setting 75mmHg. verbalizes understanding of medications, why prescribed. pt taking medications as ordered. Calling back to pharmacy to inquire about the plavix that was missing. Pain managed, no c/o cp, SOB, resp distress, NV, dizziness at this time. All needs met, questions answered at DC. Follow up appts made: Dr Valencia/2 weeks, Dr Martinez/07/26/19, [facility]. Daughter will call PCP/Paw[facility] to schedule follow up appt. No further questions at this time.
== END 2019-07-20 17:00 | disposition home health service (06) | DRG 919 ==
LOC: ER 17:49 → ED HOLD 23:01 → SUR 3N 23:38 → OBSVTOIN 07-18 07:08
PROVIDERS: ADMIT Internal Medicine; ATTEND Internal Medicine
DX: T85.618A Breakdown (mechanical) of other specified internal prosthetic devices, implants and grafts, initial encounter (principal); E43 Unspecified severe protein-calorie malnutrition; Z68.1 Body mass index [BMI] 19.9 or less, adult; D63.8 Anemia in other chronic diseases classified elsewhere; E83.42 Hypomagnesemia; E86.0 Dehydration; E87.6 Hypokalemia; I12.9 Hypertensive chronic kidney disease with stage 1 through stage 4 chronic kidney disease, or unspecified chronic kidney disease; I73.9 Peripheral vascular disease, unspecified; J44.9 Chronic obstructive pulmonary disease, unspecified; F12.90 Cannabis use, unspecified, uncomplicated; Y83.8 Other surgical procedures as the cause of abnormal reaction of the patient, or of later complication, without mention of misadventure at the time of the procedure; G89.29 Other chronic pain; K21.9 Gastro-esophageal reflux disease without esophagitis; K52.9 Noninfective gastroenteritis and colitis, unspecified; N18.3 Chronic kidney disease, stage 3 (moderate); R62.7 Adult failure to thrive; Z79.02 Long term (current) use of antithrombotics/antiplatelets; Z85.118 Personal history of other malignant neoplasm of bronchus and lung; Z85.41 Personal history of malignant neoplasm of cervix uteri; Z86.19 Personal history of other infectious and parasitic diseases; Z87.11 Personal history of peptic ulcer disease; Z87.891 Personal history of nicotine dependence; Z90.710 Acquired absence of both cervix and uterus; Z79.899 Other long term (current) drug therapy; Y92.89 Other specified places as the place of occurrence of the external cause
CPT/HCPCS: 36415; 71045; 80048; 80053; 83605; 83735; 83880; 84100; 84145; 84484; 85025; 85610; 85730; 87040; 87081; 87324; 87449; 93005; 94640; 94760; 96365; 96375; 97161; 97530; 99285; G0378; J2405; J3010; J3475; J3480; J7030

== ENCOUNTER 2019-07-24 09:30 | Day surgery (SDC) | payer MEDICARE, MEDICAID ==
[~2019-07-24 09:30] MED LIST changes: +CIPR-230 PO; +CIPR-259 PO; +CLOP75TA35 PO; +DOXY100C2 PO; +DOXY100C43 PO; +FLUC200T PO; +HYDR-4353 PO; +LISI-600 PO; +LORA10TA7 PO; +OMEP40CA13 PO; +QUELT PO
[2019-07-24] MEDS ORDERED: LIDOcaine 2% 5ml jelly ONE ×2 (10:13→10:38)
== END 2019-07-24 12:47 | disposition home or self-care (01) ==
LOC: WOUND CARE 09:30
PROVIDERS: ATTEND Surgery
DX: T81.89XA Other complications of procedures, not elsewhere classified, initial encounter (principal); I12.9 Hypertensive chronic kidney disease with stage 1 through stage 4 chronic kidney disease, or unspecified chronic kidney disease; N18.3 Chronic kidney disease, stage 3 (moderate); D63.1 Anemia in chronic kidney disease; J44.9 Chronic obstructive pulmonary disease, unspecified; K21.9 Gastro-esophageal reflux disease without esophagitis; E87.6 Hypokalemia; E83.42 Hypomagnesemia; G89.29 Other chronic pain; I73.9 Peripheral vascular disease, unspecified; E46 Unspecified protein-calorie malnutrition; F12.90 Cannabis use, unspecified, uncomplicated; F32.9 Major depressive disorder, single episode, unspecified; Z85.118 Personal history of other malignant neoplasm of bronchus and lung; Z85.41 Personal history of malignant neoplasm of cervix uteri; Z86.19 Personal history of other infectious and parasitic diseases; Z79.899 Other long term (current) drug therapy; Z79.02 Long term (current) use of antithrombotics/antiplatelets; Z68.1 Body mass index [BMI] 19.9 or less, adult; Z86.718 Personal history of other venous thrombosis and embolism; Z95.1 Presence of aortocoronary bypass graft; Z87.891 Personal history of nicotine dependence; Z90.710 Acquired absence of both cervix and uterus; Y92.89 Other specified places as the place of occurrence of the external cause; Y83.8 Other surgical procedures as the cause of abnormal reaction of the patient, or of later complication, without mention of misadventure at the time of the procedure
CPT/HCPCS: 97597; 97598; A4663; A6021; A6154; A6212

== ENCOUNTER 2019-07-31 10:30 | Day surgery (SDC) | payer MEDICARE, MEDICAID ==
[~2019-07-31 10:30] MED LIST changes: -ASPI-1265 PO; -CIPR-230 PO; -CIPR250T4 PO; -DOXY100C2 PO; -FLUC100T PO; -LACT1CAP65 PO
[2019-07-31] MEDS ORDERED: LIDOcaine 2% 5ml jelly ONE (11:44)
== END 2019-07-31 13:35 | disposition home or self-care (01) ==
LOC: WOUND CARE 10:30
PROVIDERS: ATTEND Surgery
DX: T81.89XD Other complications of procedures, not elsewhere classified, subsequent encounter (principal); L89.150 Pressure ulcer of sacral region, unstageable; I12.9 Hypertensive chronic kidney disease with stage 1 through stage 4 chronic kidney disease, or unspecified chronic kidney disease; N18.3 Chronic kidney disease, stage 3 (moderate); D63.1 Anemia in chronic kidney disease; J44.9 Chronic obstructive pulmonary disease, unspecified; K21.9 Gastro-esophageal reflux disease without esophagitis; E87.6 Hypokalemia; E83.42 Hypomagnesemia; G89.29 Other chronic pain; I73.9 Peripheral vascular disease, unspecified; E46 Unspecified protein-calorie malnutrition; F12.90 Cannabis use, unspecified, uncomplicated; F32.9 Major depressive disorder, single episode, unspecified; Z85.118 Personal history of other malignant neoplasm of bronchus and lung; Z85.41 Personal history of malignant neoplasm of cervix uteri; Z86.19 Personal history of other infectious and parasitic diseases; Z79.899 Other long term (current) drug therapy; Z79.02 Long term (current) use of antithrombotics/antiplatelets; Z68.1 Body mass index [BMI] 19.9 or less, adult; Z86.718 Personal history of other venous thrombosis and embolism; Z95.1 Presence of aortocoronary bypass graft; Z87.891 Personal history of nicotine dependence; Z90.710 Acquired absence of both cervix and uterus; Y83.8 Other surgical procedures as the cause of abnormal reaction of the patient, or of later complication, without mention of misadventure at the time of the procedure
CPT/HCPCS: 97597; 97598; A4663; A6154; A6212; A6213; A6250

== ENCOUNTER 2019-08-21 11:00 | Outpatient (CLI) | payer MEDICARE, MEDICAID ==
[~2019-08-21 11:00] MED LIST changes: -CIPR-259 PO; -DOXY100C43 PO
[2019-08-21] MEDS ORDERED: LIDOcaine 2% 5ml jelly ONE (12:04)
== END 2019-08-21 13:37 | disposition home or self-care (01) ==
LOC: EDSTATUS 11:00 → WOUND CARE 11:00
PROVIDERS: ATTEND Surgery
DX: T81.89XD Other complications of procedures, not elsewhere classified, subsequent encounter (principal); L89.152 Pressure ulcer of sacral region, stage 2; L98.492 Non-pressure chronic ulcer of skin of other sites with fat layer exposed; I12.9 Hypertensive chronic kidney disease with stage 1 through stage 4 chronic kidney disease, or unspecified chronic kidney disease; N18.3 Chronic kidney disease, stage 3 (moderate); D63.1 Anemia in chronic kidney disease; J44.9 Chronic obstructive pulmonary disease, unspecified; K21.9 Gastro-esophageal reflux disease without esophagitis; E87.6 Hypokalemia; E83.42 Hypomagnesemia; G89.29 Other chronic pain; I73.9 Peripheral vascular disease, unspecified; E46 Unspecified protein-calorie malnutrition; F12.90 Cannabis use, unspecified, uncomplicated; F32.9 Major depressive disorder, single episode, unspecified; Z85.118 Personal history of other malignant neoplasm of bronchus and lung; Z85.41 Personal history of malignant neoplasm of cervix uteri; Z86.19 Personal history of other infectious and parasitic diseases; Z79.899 Other long term (current) drug therapy; Z79.02 Long term (current) use of antithrombotics/antiplatelets; Z68.1 Body mass index [BMI] 19.9 or less, adult; Z86.718 Personal history of other venous thrombosis and embolism; Z95.1 Presence of aortocoronary bypass graft; Z87.891 Personal history of nicotine dependence; Z90.710 Acquired absence of both cervix and uterus; Y83.8 Other surgical procedures as the cause of abnormal reaction of the patient, or of later complication, without mention of misadventure at the time of the procedure
CPT/HCPCS: 97605

== ENCOUNTER 2019-08-28 10:33 | Day surgery (SDC) | payer MEDICARE, MEDICAID ==
[~2019-08-28 10:33] MED LIST changes: -HYDR-4353 PO
[2019-08-28] MEDS ORDERED: LIDOcaine 2% 5ml jelly ONE (11:32)
== END 2019-08-28 12:41 | disposition home or self-care (01) ==
LOC: WOUND CARE 10:33
PROVIDERS: ATTEND Surgery
DX: T81.89XD Other complications of procedures, not elsewhere classified, subsequent encounter (principal); L89.152 Pressure ulcer of sacral region, stage 2; L98.492 Non-pressure chronic ulcer of skin of other sites with fat layer exposed; I12.9 Hypertensive chronic kidney disease with stage 1 through stage 4 chronic kidney disease, or unspecified chronic kidney disease; N18.3 Chronic kidney disease, stage 3 (moderate); D63.1 Anemia in chronic kidney disease; J44.9 Chronic obstructive pulmonary disease, unspecified; K21.9 Gastro-esophageal reflux disease without esophagitis; E87.6 Hypokalemia; E83.42 Hypomagnesemia; G89.29 Other chronic pain; I73.9 Peripheral vascular disease, unspecified; E46 Unspecified protein-calorie malnutrition; F12.90 Cannabis use, unspecified, uncomplicated; F32.9 Major depressive disorder, single episode, unspecified; Z85.118 Personal history of other malignant neoplasm of bronchus and lung; Z85.41 Personal history of malignant neoplasm of cervix uteri; Z86.19 Personal history of other infectious and parasitic diseases; Z79.899 Other long term (current) drug therapy; Z79.02 Long term (current) use of antithrombotics/antiplatelets; Z68.1 Body mass index [BMI] 19.9 or less, adult; Z86.718 Personal history of other venous thrombosis and embolism; Z95.1 Presence of aortocoronary bypass graft; Z87.891 Personal history of nicotine dependence; Z90.710 Acquired absence of both cervix and uterus; Y83.8 Other surgical procedures as the cause of abnormal reaction of the patient, or of later complication, without mention of misadventure at the time of the procedure
CPT/HCPCS: 97597

== ENCOUNTER 2019-09-04 10:20 | Day surgery (SDC) | payer MEDICARE, MEDICAID ==
[2019-09-04] MEDS ORDERED: LIDOcaine 2% 5ml jelly ONE (11:00)
== END 2019-09-04 12:14 | disposition home or self-care (01) ==
LOC: WOUND CARE 10:20
PROVIDERS: ATTEND Surgery
DX: T81.89XD Other complications of procedures, not elsewhere classified, subsequent encounter (principal); L89.152 Pressure ulcer of sacral region, stage 2; L98.492 Non-pressure chronic ulcer of skin of other sites with fat layer exposed; I12.9 Hypertensive chronic kidney disease with stage 1 through stage 4 chronic kidney disease, or unspecified chronic kidney disease; N18.3 Chronic kidney disease, stage 3 (moderate); D63.1 Anemia in chronic kidney disease; J44.9 Chronic obstructive pulmonary disease, unspecified; K21.9 Gastro-esophageal reflux disease without esophagitis; E87.6 Hypokalemia; E83.42 Hypomagnesemia; G89.29 Other chronic pain; I73.9 Peripheral vascular disease, unspecified; E46 Unspecified protein-calorie malnutrition; F12.90 Cannabis use, unspecified, uncomplicated; F32.9 Major depressive disorder, single episode, unspecified; Z85.118 Personal history of other malignant neoplasm of bronchus and lung; Z85.41 Personal history of malignant neoplasm of cervix uteri; Z86.19 Personal history of other infectious and parasitic diseases; Z79.899 Other long term (current) drug therapy; Z79.02 Long term (current) use of antithrombotics/antiplatelets; Z68.1 Body mass index [BMI] 19.9 or less, adult; Z86.718 Personal history of other venous thrombosis and embolism; Z95.1 Presence of aortocoronary bypass graft; Z87.891 Personal history of nicotine dependence; Z90.710 Acquired absence of both cervix and uterus; Y83.8 Other surgical procedures as the cause of abnormal reaction of the patient, or of later complication, without mention of misadventure at the time of the procedure
CPT/HCPCS: 97597; A6021; A6154; A6196; A6212